=== PATIENT | female | born 1955 | race Caucasian/White ===

== ENCOUNTER → 2018-08-12 16:12 | Outpatient (CLI) | payer OTHER, SELFPAY ==
--- NOTE | 2018-08-12 16:15 | XR_ITS ---
XR chest 2V HISTORY: ITS.REASON: cough ORDERING PHYSICIAN: Aroldo Li PATIENT AGE: 63 years COMPARISON: 03/30/2009 FINDINGS: Unremarkable cardiovascular structures. Emphysema/COPD with hyperinflation and attenuation of the peripheral vessels. Chronic scarring in the right midlung and left lower lobe. No lobar consolidation or collapse. No acute bony anomalies. IMPRESSION: COPD/emphysema with chronic change, no change with no acute finding
== END ==
PROVIDERS: PCP Nurse Practitioner Family; Visit Provider Nurse Practitioner Family
DX: R05 Cough (principal); R53.1 Weakness
CPT/HCPCS: 71046

== ENCOUNTER → 2018-08-13 09:14 | Outpatient (CLI) | payer OTHER, SELFPAY ==
[2018-08-13 09:55] LABS: Basophils # 0.1 K/mm3 (0-0.2); Basophils % 1.1 % (0.1-2.0); Eosinophils # 0.2 K/mm3 (0.0-0.4); Eosinophils % 2.3 % (0.1-12.0); Hematocrit 40.6 % (37.0-47.0); Lymphocytes # 1.8 K/mm3 (0.7-4.5); Mean Corpuscular HGB Conc 32.1 g/dL (31.8-35.4); Mean Corpuscular Hemoglobin 28.6 pg (27.0-31.2); Mean Corpuscular Volume 89.1 fl (81-99); Mean Platelet Volume 7.2 fl (7.4-10.4); Monocytes # 0.4 K/mm3 (0.1-1.0); Monocytes % 5.9 % (1.7-9.3); Neutrophils % 62.7 % (37.0-80.0); Platelet Count 246 K/mm3 (142-424); Red Blood Count 4.55 M/mm3 (4.20-5.40); Red Cell Distribution Width 14.3 % (11.5-17.5); White Blood Count 6.4 K/mm3 (4.8-10.8)
[2018-08-13 11:08] LABS: Alanine Aminotransferase 29 U/L (12-78); Albumin Level 3.4 gm/dL (3.4-5.0); Albumin/Globulin Ratio 0.9 (1.1-1.8); Alkaline Phosphatase 73 U/L (46-116); Anion Gap 12.3 mEq/L (5-15); Aspartate Amino Transferase 20 U/L (15-37); Bilirubin,Total 0.3 mg/dL (0.2-1.0); Blood Urea Nitrogen 13 mg/dL (7-18); Calcium 9.1 mg/dL (8.5-10.1); Carbon Dioxide 28 mmol/L (21.0-32.0); Chloride 103 mmol/L (98-107); Chol/HDL Ratio 2.6 (1-3.5); Cholesterol 286 mg/dL (140-200); Creatinine,Serum 0.38 mg/dL (0.55-1.02); Estimated Glomerular Filt Rate 170 ml/min (>60); GFR (African American) 206 ML/MIN (>60); Globulin 3.6 gm/dl (1.3-3.2); Glucose 101 mg/dL (74-106); HDL Cholesterol 109 mg/dL (29-89); LDL Cholesterol 158 mg/dL (0-130); Potassium 4.3 mmoL/L (3.5-5.1); Sodium 139 mmol/L (136-145); T4 (Thyroxine) 11.2 ug/dl (4.7-13.3); Thyroid Stimulating Hormone 2.36 uIU/ml (0.358-3.740); Triglycerides 96 mg/dL (30-200); VLDL Cholesterol 19 mg/dL (0-40)
[2018-08-13 11:31] LABS: Hemoglobin A1C 5.6 % (0.0-7.0)
[2018-08-14 08:31] LABS: Iron 81 ug/dL (27-139); UIBC 348 ug/dL (118-369)
[2018-08-14 19:13] LABS: Iron Saturation 19 % (15-55)
== END ==
PROVIDERS: PCP Nurse Practitioner Family; Visit Provider Nurse Practitioner Family
DX: R53.1 Weakness (principal); R53.82 Chronic fatigue, unspecified; R05 Cough
CPT/HCPCS: 36415; 80053; 80061; 82652; 83036; 83540; 83550; 84436; 84443; 85025

== ENCOUNTER → 2018-08-27 13:22 | Outpatient (CLI) | payer OTHER, SELFPAY ==
[2018-08-27 14:08] VITALS: PULSE 85
== END ==
PROVIDERS: PCP Nurse Practitioner Family; Visit Provider Nurse Practitioner Family
DX: R05 Cough (principal)
CPT/HCPCS: 94060; 94640

== ENCOUNTER → 2021-03-07 14:12 | Outpatient (CLI) | payer MEDICARE, OTHER, SELFPAY ==
[2021-03-07 14:29] LABS: Basophils # 0.1 K/mm3 (0-0.2); Basophils % 0.7 % (0.1-2.0); Eosinophils # 0.1 K/mm3 (0.0-0.4); Eosinophils % 1.1 % (0.1-12.0); Hematocrit 33.2 % (37.0-47.0); Hemoglobin 9.9 g/dL (12.2-16.2); Lymphocytes # 1.5 K/mm3 (0.7-4.5); Lymphocytes % 14.3 % (10-50); Mean Corpuscular HGB Conc 29.9 g/dL (31.8-35.4); Mean Corpuscular Hemoglobin 21.3 pg (27.0-31.2); Mean Corpuscular Volume 71.3 fl (81-99); Mean Platelet Volume 6.9 fl (7.4-10.4); Monocytes # 0.6 K/mm3 (0.1-1.0); Monocytes % 5.4 % (1.7-9.3); Neutrophils # 8.2 K/mm3 (1.8-7.8); Neutrophils % 78.5 % (37.0-80.0); Platelet Count 397 K/mm3 (142-424); Red Blood Count 4.66 M/mm3 (4.20-5.40); Red Cell Distribution Width 19.4 % (11.5-17.5); White Blood Count 10.4 K/mm3 (4.8-10.8)
[2021-03-07 16:36] LABS: Alanine Aminotransferase 19 U/L (12-78); Albumin Level 3.5 g/dl (3.5-5.0); Albumin/Globulin Ratio 1.2 (1.1-1.8); Alkaline Phosphatase 93 U/L (38-126); Anion Gap 15.5 mEq/L (5-15); Aspartate Amino Transferase 28 U/L (14-36); Bilirubin,Total 0.3 mg/dl (0.2-1.3); Blood Urea Nitrogen 17 mg/dl (7-17); Calcium 9.2 mg/dl (8.4-10.2); Carbon Dioxide 23 mmol/L (22.0-30.0); Chloride 102 mmol/L (98-107); Chol/HDL Ratio 2.9 (1-3.5); Cholesterol 220 mg/dl (140-200); Estimated Glomerular Filt Rate 160 ml/min (>60); GFR (African American) 193 ML/MIN (>60); Glucose 112 mg/dl (74-100); HDL Cholesterol 75 mg/dl (40-60); Potassium 4.5 mmoL/L (3.5-5.1); Sodium 136 mmol/L (136-145); Total Protein,Serum 6.5 g/dl (6.3-8.2); Triglycerides 204 mg/dl (30-150); VLDL Cholesterol 41 mg/dL (0-40)
[2021-03-07 16:47] LABS: Direct LDL Cholesterol 99.67 mg/dL (100-129)
[2021-03-07 16:53] LABS: T4 (Thyroxine) 10.7 ug/dl (5.53-11.0)
[2021-03-07 16:54] LABS: 25-OH Vitamin D, Total < 12.8 ng/mL (30-100)
[2021-03-07 17:06] LABS: Thyroid Stimulating Hormone 2.03 uIU/mL (0.465-4.68)
== END ==
PROVIDERS: Visit Provider Nurse Practitioner Family
DX: E55.9 Vitamin D deficiency, unspecified (principal); J44.9 Chronic obstructive pulmonary disease, unspecified; R73.03 Prediabetes; E78.5 Hyperlipidemia, unspecified; R53.83 Other fatigue
CPT/HCPCS: 80053; 80061; 82306; 83036; 84436; 84443; 85025

== ENCOUNTER → 2021-03-10 10:58 | Outpatient (CLI) | payer MEDICARE, OTHER, SELFPAY ==
[2021-03-10 12:15] LABS: Coronavirus 19 IgG Antibody Negative (Negative); Coronavirus 19 IgM Antibody Negative (Negative)
== END ==
PROVIDERS: Visit Provider Internal Medicine Gastroenterology
DX: Z01.812 Encounter for preprocedural laboratory examination (principal); Z11.52 Encounter for screening for COVID-19; Z12.11 Encounter for screening for malignant neoplasm of colon
CPT/HCPCS: 36415; 86328

== ENCOUNTER 2021-03-12 06:17 | Day surgery (SDC) | payer MEDICARE, OTHER, SELFPAY ==
[2021-03-09 13:01] VITALS: BMI 12.2
[2021-03-12] VITALS (15 sets, daily range): BP systolic 68–153; BP diastolic 40–88; PULSE 85–112; RESP 12–24; TEMP 36.4–36.6; O2SAT 93–99
--- NOTE | 2021-03-12 07:16 | P.PN_ITS ---
[facility] Anesthesia Checklist - Patient Identification Patient Identification: Arm Band - Structural Data Admitted From: Home Planned Operative Procedure/s: Colonoscopy Consent for Planned Operative Procedure(s) Verified: Yes - NPO Status Verified Time NPO: 00:00 - Airway Assessment Dentition: Edentulous - Neurological Assessment Level of Consciousness: Awake, Alert Hx Seizures: No Numbness or tingling in extremities: No - Anesthesia Plan Anesthesia Risk discussed: Yes Anesthesia Plan: Verified ASA Class: III Anesthesia Type: MAC [facility] History I have reviewed the patient's past medical history: Yes Medical History: Reports:: Asthma, Chronic Obstructive Pulmonary Disease (COPD), Hyperlipidemia Denies:: Cancer, Diabetes Mellitus Type 1, Diabetes Mellitus Type 2, Internal Pacemaker, MRSA, Seizures *Have you ever received a pneumonia vaccine?: Yes *Have you received a flu vaccine this season?: No Other Medical History: Reports: Anemia Anesthesia experience/problems:: None Laterality Cases: Left: Lumpectomy Other Surgeries: Yes: Other. No: Pacemaker Amputation: No Fractures: No - *Social History Last grade of school completed: 7th or 8th Smoking Status: Current every day smoker Tobacco Type: cigarettes # Packs/Day (cigarettes): 1 Alcohol Intake: never Substance Use Type: denies use *Occupational Status:: disabled Housing: house Household Members: none *Travel in the last 8 weeks: None Family Hx:: Diabetes, Cancer
--- NOTE | 2021-03-12 08:03 | P.PCN_ITS ---
[facility] Procedure Note Procedure Note:: Sigmoidoscopy procedure Report: Sigmoidoscopy with cold biopsies Endoscopist: Vincent Jin II, MD Referring physician: RUDY Tate Date of Procedure: March 12, 2021 Equipment: Olympus 190 variable stiffness pediatric colonoscope Sedation: MAC sedation Indication: Mrs. Ruggiero is a 65-year-old female with a positive Cologuard test that is here for diagnostic colonoscopy. The patient also has anemia and fatigue. She has had moderate weight loss of more than 20 pounds. The patient recently had some constipation. She has had some lower abdominal discomfort. She reports no family history of colon cancer but she does state that her father had prostate cancer. This is her first colonoscopy. Procedure: Prior to the procedure, a history and physical exam was performed, and patient's medications and allergies were reviewed. The risks, benefits and alternatives of the sedation and procedure were discussed with the patient. All questions were answered and informed consent was obtained. The patient was brought to the procedure room. Patient identification and proposed procedure were verified by the physician and the nurse. The patient was placed in a left lateral decubitus position and the scope was passed under direct vision. Throughout the procedure, the patient's blood pressure, pulse, and oxygen saturations were monitored continuously. The colonoscopy was accomplished without difficulty. The patient tolerated the procedure well. Findings: On digital rectal examination there was normal rectal tone and there were no external hemorrhoids. The colonoscope was then introduced through the anal canal into the rectum and advanced to the mid descending colon where there was a colonic mass lesion that was friable, fungating with some spontaneous heme. Cold biopsies were obtained. The colonoscope could not be easily advanced around this descending colon cancer because of the mass-effect as well as poor preparation. Upon withdrawal, there were diverticuli throughout the sigmoid colon. There were grade 1 internal hemorrhoids. Impression: 1. 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 I am going to begin staging evaluation today with CT scan of the chest abdomen and pelvis. I will obtain iron studies, CBC, CMP and CEA level. I will discuss the findings with the patient and family.
--- NOTE | 2021-03-12 08:32 | HMH.ANESI ---
[facility] Anesthesia Record Part I Intake, IV Amount: 600 Estimated blood loss (mL): 0 Urine output (mL): 0 Blood Pressure: 112/52 SaO2: 94 Pulse Rate: 95 Respiratory Rate: 12 Temperature: 97.6 F Patient is:: Awake Stable to PACU at:: 08:29
--- NOTE | 2021-03-12 09:18 | CT_ITS ---
PROCEDURE: CT ABDOMEN PELVIS WO/W CON CLINICAL INDICATION: anemia Colon mass, evaluate for metastatic disease COMPARISON: No exams were available for comparison TECHNIQUE: IV Contrast: 75ML Isovue 370 Oral Contrast None Axial images obtained with sagittal and coronal reformats. All CT scans at the facility use one or more dose reduction, viz: automated exposure control, ma/kV adjustment per patient size (including targeted exams where dose is matched to indication, i.e. head), or iterative reconstruction technique. FINDINGS: There are numerous small hypodense lesions of the liver which may represent multiple hepatic cysts. These are without contrast enhancement and the larger ones are well-circumscribed. The largest hypodensity is 8 mm in the left hepatic lobe and 8 mm in the right hepatic lobe anteriorly. The spleen, pancreas, gallbladder, and adrenal glands have an unremarkable appearance. There are multiple small cortical cyst of the right kidney with cortical scarring involving both kidneys. There is mild left hydronephrosis and hydroureter secondary to pelvic mass. There is a large mass involving the sigmoid colon measuring at least 6.6 cm in AP dimension and 4 cm transverse. This is in the mid aspect of the sigmoid colon. There is mild gaseous distention of the colon with air-fluid levels proximal to this region suggesting partial obstruction. Lack of patient body fat makes interpretation somewhat difficult. There is some haziness in the pericolic region which may be due to sub serosal spread. Oral contrast has not yet reached that part of the colon. There is diffuse increased soft tissue density in the lower pelvic region some of which is related to the thickened rectosigmoid portion of the colon and some which is felt to be due to prominent cervix and uterus. There are small air-fluid levels to the right of the rectosigmoid region probably in unopacified bowel and 1 area may represent a part of the urinary bladder. Cystic changes are present in the left ovary. No acute bony finding. No bony destructive process. No lytic or blastic changes. IMPRESSION: 1. There is a mass of the sigmoid colon as described above causing at least partial obstruction. Lack of patient's body fat makes evaluation somewhat difficult. There is some haziness of the pericolic fat in this region which may represent sub serosal spread. No dominant adenopathy is evident. 2. Diffuse increased density in the lower pelvic region which may be due to a combination of thickened rectosigmoid region with prominent cervix. Cannot exclude the possibility of extra colic fluid collections/abscess in the pelvic area. Proctitis/colitis is considered 3. Multiple hypodense lesions of the liver which may be due to cyst. Stability may be confirmed with follow-up. 4. Left hydronephrosis and hydroureter secondary to the pelvic mass Dictated by: Simon Tavera MD 03/12/2021 15:30 Simon Tavera MD in [facility] 03/12/2021 15:30
--- NOTE | 2021-03-12 09:18 | CT_ITS ---
PROCEDURE: CT CHEST WO/W CON CLINCAL INDICATION: anemia Colon mass evaluate for metastatic disease. COMPARISON: No exams were available for comparison TECHNIQUE: IV Contrast: 75ml Isovue 370 Axial images obtained with sagittal and coronal reformats. All CT scans at the facility use one or more dose reduction, viz: automated exposure control, ma/kV adjustment per patient size (including targeted exams where dose is matched to indication, i.e. head), or iterative reconstruction technique. FINDINGS: HEART AND MEDIASTINAL STRUCTURES: No mediastinal or mass or adenopathy. Coronary artery calcifications present. LUNGS AND PLEURAL SPACES: COPD with centrilobular emphysema with pulmonary fibrosis. There are scattered peripheral parenchymal opacities in both lungs which likely represent scarring. Follow-up may confirm stability. These areas are in both upper and lower lobes bilaterally. No lobar consolidation or collapse is evident. No effusions. BONY STRUCTURES: No acute bony abnormalities apparent. UPPER ABDOMEN: Unremarkable. ADDITIONAL FINDINGS: No other significant abnormalities. IMPRESSION: COPD with scattered areas of scarring. There are multiple peripheral subpleural opacities which may represent scarring. One cannot exclude the possibility of neoplastic process in anyone of these areas. Continued follow-up is suggested. No convincing evidence of pulmonary metastasis. Dictated by: Simon Tavera MD 03/12/2021 15:12 Simon Tavera MD in [facility] 03/12/2021 15:12
[2021-03-12 09:51] LABS: Basophils % 0.3 % (0.1-2.0); Eosinophils % 0.2 % (0.1-12.0); Hematocrit 30.4 % (37.0-47.0); Hemoglobin 9.3 g/dL (12.2-16.2); Lymphocytes # 0.9 K/mm3 (0.7-4.5); Mean Corpuscular HGB Conc 30.5 g/dL (31.8-35.4); Mean Corpuscular Hemoglobin 21.2 pg (27.0-31.2); Mean Corpuscular Volume 69.4 fl (81-99); Mean Platelet Volume 8.1 fl (7.4-10.4); Monocytes # 0.3 K/mm3 (0.1-1.0); Monocytes % 3.1 % (1.7-9.3); Neutrophils # 9.7 K/mm3 (1.8-7.8); Neutrophils % 88.4 % (37.0-80.0); Platelet Count 384 K/mm3 (142-424); Red Blood Count 4.38 M/mm3 (4.20-5.40); Red Cell Distribution Width 19.2 % (11.5-17.5)
[2021-03-12 09:57] LABS: MANUAL DIFFERENTIAL MANUAL DIFFERENTIAL (MANUAL DIFF)
[2021-03-12 10:05] LABS: Chloride 101 mmol/L (98-107)
[2021-03-12 10:07] LABS: Alanine Aminotransferase 14 U/L (12-78); Albumin Level 3.2 g/dl (3.5-5.0); Alkaline Phosphatase 81 U/L (38-126); Anion Gap 11.7 mEq/L (5-15); Aspartate Amino Transferase 29 U/L (14-36); Bilirubin,Total 0.2 mg/dl (0.2-1.3); Blood Urea Nitrogen 9 mg/dl (7-17); Calcium 8.8 mg/dl (8.4-10.2); Carbon Dioxide 26 mmol/L (22.0-30.0); Creatinine Clearance Estimated 28 mL/min (50-200); Estimated Glomerular Filt Rate 223 ml/min (>60); GFR (African American) 269 ML/MIN (>60); Globulin 3.1 g/dL (1.3-3.2); Glucose 104 mg/dl (74-100); Potassium 3.7 mmoL/L (3.5-5.1); Sodium 135 mmol/L (136-145); Total Protein,Serum 6.3 g/dl (6.3-8.2)
--- NOTE | 2021-03-12 10:20 | SUR.PHASEII ---
PT JUST FINISHED CONTRAST, RADIOLOGY NOTIFIED.
[2021-03-12 10:39] LABS: Iron 19 ug/dL (37-170)
[2021-03-12 10:52] LABS: Total Iron Binding Capacity 321 ug/dL (265-497)
[2021-03-12 11:03] LABS: Lymphocytes % 11 % (10-50); Monocytes % 3 % (2-9); Neutrophils % 86 % (42-76); Platelet Estimate Normal; RBC Morphology Normal; Total Cells Counted 100
--- NOTE | 2021-03-12 11:20 | SUR.PHASEII ---
DR. CHEUNG WANTS IRON INFUSION TO BE DONE ON OUTPT BASIS. ORDER NOTED AND INFUSION SCHEDULED WITH OUTPT INFUSION
--- NOTE | 2021-03-12 12:51 | P.PN_ITS ---
[facility] Anesthesia Record Part II Discharge Time: 12:35 Destination: Surgical Day Care (OP Surgery) PACU nurse assessment reviewed?: Yes Patient Condition:: Good Anesthesia Complications:: None Swallowing reflex intact?: Yes Cyanosis?: No Blood Pressure: 127/63 Pulse Rate: 85 Temperature: 97.6 F Mental Status: Alert & Oriented Pain level:: 0 Nausea and/or vomitting:: None Intake, IV Amount: 600
[2021-03-13 12:37] LABS: CEA 6.2 ng/mL (0.0-4.7)
== END 2021-03-12 12:36 | disposition home or self-care (01) ==
LOC: OUTP 06:21
PROVIDERS: PCP Nurse Practitioner Family; Visit Provider Internal Medicine Gastroenterology
PROC: 0DJD8ZZ Inspection of Lower Intestinal Tract, Via Natural or Artificial Opening Endoscopic (ICD-10-PCS; CPT 45330; principal; 2021-03-12 07:30)
DX: C18.6 Malignant neoplasm of descending colon (principal); K64.0 First degree hemorrhoids; J45.909 Unspecified asthma, uncomplicated; J44.9 Chronic obstructive pulmonary disease, unspecified; E78.5 Hyperlipidemia, unspecified; Z72.0 Tobacco use; Z83.3 Family history of diabetes mellitus; Z80.9 Family history of malignant neoplasm, unspecified; Z79.899 Other long term (current) drug therapy; Z88.0 Allergy status to penicillin
CPT/HCPCS: 45331; 36415; 71270; 74178; 80053; 82378; 83540; 83550; 85007; 85025; 88305; Q9967